=== PATIENT | female | born 1995 | race Caucasian/White ===

== ENCOUNTER 2017-01-26 18:59 | Emergency (ER) | payer OTHER ==
--- NOTE | 2017-01-26 19:26 | ED Physician Documentation ---
PD HPI FEMALE - Stated complaint Stated Complaint: FEMALE - Chief complaint Chief Complaint: General - History obtained from History obtained from: Patient - History of Present Illness Timing - onset: How many weeks ago (she has had about a week of nausea, some feeling of breast tenderness and has had some intermittent left lower abd cramps. No vaginal bleeding nor discharge. She says feeling is similar to when she was with her first child. Has hormone implant in left upper arm the past 6 months and has irregular/occasional periods that are light.) Timing - duration: Weeks (1) Timing - details: Gradual onset, Still present, Waxing and waning Associated symptoms: No: Fever, Vaginal bleeding, Vaginal discharge, Genital sore/lesion, Dysuria, Urinary frequency Contributing factors: control (had implant in upper arm). 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 denies: Vomiting, Diarrhea : reports: Irregular menses (due to implant). denies: Dysuria, Frequency, Discharge Skin: denies: Rash, Lesions PD PAST MEDICAL HISTORY - Past Medical History GI: None A P MANAGER: None : None - Present Medications Home Medications: Ambulatory Orders Medication Instructions Recorded Confirmed Ibuprofen 400 mg PO TID #20 tablet 01/26/17 Ondansetron Odt [Zofran] 4 mg TL Q6H PRN #15 tablet 01/26/17 - Allergies Allergies/Adverse Reactions: Allergies Allergy/AdvReac Type Severity Reaction Status Date / Time No Known Drug Allergies Allergy Verified 01/26/17 19:10 PD ED PE NORMAL - Vitals Vital signs reviewed: Yes - General General: Alert and oriented X 3, No acute distress, Well developed/nourished - Abdomen Abdomen: Soft, Non tender - Female Female : Deferred - Rectal Rectal: Deferred - Back Back: No CVA TTP - Derm Derm: Normal color, Warm and dry Results - Vitals Vitals: Vital Signs - 24 hr 01/26/17 01/26/17 19:07 20:37 Temperature 36.3 C L 36.5 C Heart Rate 95 76 Respiratory 16 22 Rate Blood Pressure 156/89 H 134/71 H O2 Saturation 99 100 Oxygen O2 Source Room air - Labs Labs: Laboratory Tests 01/26/17 01/26/17 19:28 19:42 Serum HCG, Qual NEGATIVE Urine Color YELLOW Urine Clarity CLEAR Urine pH 6.5 Ur Specific [place] 1.010 Urine Protein NEGATIVE Urine Glucose (UA) NEGATIVE Urine Ketones NEGATIVE Urine Occult Blood NEGATIVE Urine Nitrite NEGATIVE Urine Bilirubin NEGATIVE Urine Urobilinogen 0.2 (NORMAL) Ur Leukocyte Esterase MODERATE H Urine RBC 0-5 Urine WBC 11-25 H Ur Squamous Epith Cells MOD Squamous H Urine Bacteria None Seen Ur Microscopic Review INDICATED Urine Culture Comments NOT INDICATED Urine HCG, Qual NEGATIVE PD MEDICAL DECISION MAKING - ED course Complexity details: considered differential (not . Has had some breast tenderness and nausea that made her think she is . Has had some left lower cramps at times. Consider ovarian cyst. Not having pain right now, so I did not see need for U/S at this time. ), d/w patient Departure - Departure Disposition: 01 Home, Self Care Clinical Impression: Nausea Condition: Stable Record reviewed to determine appropriate education?: Yes Follow-Up: [facility] [Provider Group] Prescriptions: Ibuprofen 400 mg PO TID #20 tablet Ondansetron Odt [Zofran] 4 mg TL Q6H PRN #15 tablet PRN Reason: Nausea / Vomiting Comments: Drink lots of fluids. Your urine and blood tests are negative. Tylenol or Ibuprofen as needed for pains/cramps. Zofran if needed for nausea. Follow up GYNecology or your PCP regarding getting the Implant out, if you wish it out. At least one of your blood pressure readings in the ER today was elevated above the normal level. If you have diagnosed high blood pressure in the past, please be sure you are taking your BP medications and eating low salt diet. If you do not have know high BP, then being high today does not mean it is a mcc issue. It might be reactively high to the situation that has you here. You should follow up with your primary care to have the blood pressure checked again in the next few days/week or so to see if it is persistently high. If so, then you may need medication or changes in diet/lifestyle to treat it. Discharge Date/Time: 01/26/17 20:41
[2017-01-26 19:34] LABS: BILIRUBIN,URINE NEGATIVE (NEGATIVE); PH,URINE 6.5 PH (5.0-7.5)
[2017-01-26 19:38] LABS: HCG UR QUAL NEGATIVE; UA w/ MICROSCOPIC CHARGE YES
[2017-01-26 19:46] LABS: UR CULTURE IF IND NOT INDICATED
[2017-01-26] MEDS ORDERED: ONDANSETRON ODT 4 MG TABLET TL STA (20:28)
[2017-01-26] MEDS ORDERED: IBUPROFEN 600 MG TABLET PO STA (20:29)
[2017-01-26] MEDS ORDERED: ONDANSETRON ODT 4 MG TABLET ONE (20:31)
[2017-01-26] MEDS ORDERED: IBUPROFEN 600 MG TABLET PO ONE (20:31)
[2017-01-26 20:38] VITALS: BP 134/71
== END 2017-01-26 20:41 | disposition home or self-care (01) ==
LOC: ED 18:59
DX: R11.0 Nausea (principal); R10.32 Left lower quadrant pain; N64.89 Other specified disorders of breast; R03.0 Elevated blood-pressure reading, without diagnosis of hypertension
CPT/HCPCS: 36415; 81001; 81025; 84703; 99283; A9270; Q0162; 81003; 87086

== ENCOUNTER 2017-08-05 00:10 | Emergency (ER) | payer OTHER ==
[2017-08-05 00:38] LABS: BILIRUBIN,URINE NEGATIVE (NEGATIVE); PH,URINE 6.5 PH (5.0-7.5)
[2017-08-05 00:42] LABS: HCG UR QUAL NEGATIVE; UA CHARGE (STRIP ONLY) YES; UR CULTURE IF IND NOT INDICATED
--- NOTE | 2017-08-05 00:53 | ED Physician Documentation ---
History of Present Illness - Stated complaint Stated Complaint: ABDOMINAL PAIN - Chief complaint Chief Complaint: Abd Pain - History obtained from History obtained from: Patient (21 y/o female here because she took a home test and she states that it was "faintly positive" and she waneted a blood test. She reports no urinary sx, no vaginal bleeding. states that she has lower abdominal tendernss.) Review of Systems Constitutional: denies: Fever, Chills GI: reports: Abdominal Pain. denies: Nausea, Vomiting, Constipation, Diarrhea : denies: Dysuria, Frequency, Hematuria, Discharge, LMP, Vaginal bleeding Skin: denies: Rash, Lesions Musculoskeletal: denies: Neck pain, Back pain Neurologic: denies: Syncope PD PAST MEDICAL HISTORY - Past Medical History GI: None COOK SPECIALTY: None : None - Past Surgical History Past Surgical History: No - Present Medications Home Medications: Ambulatory Orders Medication Instructions Recorded Confirmed No Known Home Medications [No 08/05/17 08/05/17 Known Home Medications] - Allergies Allergies/Adverse Reactions: Allergies Allergy/AdvReac Type Severity Reaction Status Date / Time No Known Drug Allergies Allergy Verified 08/05/17 00:22 - Social History Does the pt smoke?: No Smoking Status: Never smoker Does the pt drink ETOH?: No Does the pt have substance abuse?: No - Immunizations Immunizations are current?: Yes - POLST Patient has POLST: No PD ED PE NORMAL - Vitals Vital signs reviewed: Yes - General General: Alert and oriented X 3, No acute distress, Well developed/nourished - Derm Derm: Normal color, No rash - Extremities Extremities: No deformity, No edema - Neuro Neuro: Alert and oriented X 3, Normal speech Eye Opening: Spontaneous Motor: Obeys Commands Verbal: Oriented GCS Score: 15 - Psych Psych: Normal mood, Normal affect Results - Vitals Vitals: Vital Signs - 24 hr 08/05/17 00:17 Temperature 37 C Heart Rate 105 H Respiratory 18 Rate Blood Pressure 135/93 H O2 Saturation 98 Oxygen O2 Source Room air - Labs Labs: Laboratory Tests 08/05/17 08/05/17 00:30 00:30 Urine Color YELLOW Urine Clarity CLEAR Urine pH 6.5 Ur Specific [place] 1.020 1.020 Urine Protein NEGATIVE Urine Glucose (UA) NEGATIVE Urine Ketones NEGATIVE Urine Occult Blood NEGATIVE Urine Nitrite NEGATIVE Urine Bilirubin NEGATIVE Urine Urobilinogen 0.2 (NORMAL) Ur Leukocyte Esterase NEGATIVE Ur Microscopic Review NOT INDICATED Urine Culture Comments NOT INDICATED Urine HCG, Qual NEGATIVE PD MEDICAL DECISION MAKING - ED course Complexity details: reviewed results, considered differential, d/w patient ED course: pt here wanting "blood" test. informed her about the urine test and the blood tests. our urine HCG was neg here. informed her that she should wait 48 hours and if she was still concerned about she should take another home test. she had a benign ABD. she expressed understanding. Departure - Departure Disposition: 01 Home, Self Care Clinical Impression: Abdominal pain Condition: Good Instructions: ED Abdominal Pain Unkn Cause Follow-Up: [facility] SOLOR[facility] [Primary Care Provider] - Comments: Wait 48 hours and if you are still concerned about you can take another home urine test. If your abdominal pain worsens or you get new symptoms return to the ER.
[2017-08-05 01:04] VITALS: BP 112/78
== END 2017-08-05 01:02 | disposition home or self-care (01) ==
LOC: ED 00:10
DX: R10.9 Unspecified abdominal pain (principal)
CPT/HCPCS: 81001; 81003; 81025; 87086; 99281; 99283

== ENCOUNTER 2017-08-19 00:18 | Emergency (ER) | payer OTHER ==
[2017-08-19 00:49] LABS: BILIRUBIN,URINE NEGATIVE (NEGATIVE); GLUCOSE, URINE (UA) NEGATIVE (NEGATIVE); KETONES,URINE (UA) NEGATIVE (NEGATIVE); LEUKOCYTE ESTERASE, URINE NEGATIVE (NEGATIVE); NITRITE,URINE NEGATIVE (NEGATIVE); OCCULT BLOOD,URINE SMALL (NEGATIVE); PROTEIN,URINE NEGATIVE (NEGATIVE); UROBILINOGEN,URINE 0.2 (NORMAL) E.U./dL (NORMAL)
[2017-08-19 00:53] LABS: CLARITY,URINE CLEAR (CLEAR); HCG UR QUAL POSITIVE
[2017-08-19 01:12] LABS: BACTERIA,URINE None Seen /HPF (None Seen); RBC,URINE 0-5 /HPF (0-5); SQUAMOUS EPITHELIAL CELL,UR RARE Squamous (<= Few)
[2017-08-19 01:17] LABS: BASOPHILS # (AUTO) 0.1 10^3/uL (0.0-0.1); BASOPHILS % (AUTO) 0.7 %; EOSINOPHILS # (AUTO) 0.2 10^3/uL (0.0-0.7); EOSINOPHILS % (AUTO) 2.3 %; HGB - HEMOGLOBIN 14.2 g/dL (12.0-16.0); LYMPHOCYTES # (AUTO) 2.2 10^3/uL (1.5-3.5); LYMPHOCYTES % (AUTO) 27.8 %; MEAN CORPUSCULAR HEMOGLOBIN 31.3 pg (27.0-31.0); MEAN CORPUSCULAR HGB CONC 35.1 g/dL (32.0-36.0); MEAN PLATELET VOLUME 7.4 fL (7.9-10.8); MONOCYTES # (AUTO) 0.5 10^3/uL (0.0-1.0); MONOCYTES % (AUTO) 6.6 %; NEUTROPHILS # (AUTO) 4.9 10^3/uL (1.5-6.6); NEUTROPHILS % (AUTO) 62.6 %; PLT - PLATELET COUNT 264 10^3/uL (130-450); RED BLOOD COUNT 4.55 10^6/uL (4.20-5.40); RED CELL DISTRIBUTION WIDTH 13.2 % (12.0-15.0); WHITE BLOOD COUNT 7.9 x10^3/uL (4.8-10.8)
[2017-08-19 01:35] LABS: ALBUMIN/GLOBULIN RATIO 1.3 (1.0-2.2); BILIRUBIN,TOTAL 0.2 mg/dL (0.2-1.0); CALCIUM 9.3 mg/dL (8.5-10.3); CREATININE 0.7 mg/dL (0.4-1.0); TOTAL PROTEIN 7.1 g/dL (6.7-8.2)
--- NOTE | 2017-08-19 01:54 | ED Physician Documentation ---
PD HPI FEMALE - Stated complaint Stated Complaint: BLEEDING,8W - Chief complaint Chief Complaint: General - History obtained from History obtained from: Patient - History of Present Illness Timing - onset: Today Timing - details: Gradual onset, Still present Associated symptoms: Vaginal bleeding. 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 patient was seen here almost two weeks ago and beta hcg was negative. patient states that she did have a beta performed last week and it was around 200. patient states tonight she had a little spotting so she came to the emergency department for evaluation. Review of Systems Constitutional: denies: Fever, Chills Eyes: reports: Reviewed and negative Ears: reports: Reviewed and negative Nose: reports: Reviewed and negative Throat: reports: Reviewed and negative Cardiac: reports: Reviewed and negative GI: denies: Abdominal Pain, Nausea, Vomiting : reports: Vaginal bleeding Skin: denies: Rash, Lesions Neurologic: denies: Generalized weakness, Near syncope, Syncope Immunocompromised: denies: Immunocompromised PD PAST MEDICAL HISTORY - Past Medical History GI: None BILLET STRAIGHTENER: None : None - Past Surgical History Past Surgical History: No - Present Medications Home Medications: Ambulatory Orders Medication Instructions Recorded Confirmed Cephalexin [Keflex] 250 mg PO QID 08/19/17 08/19/17 Pnv95/Ferrous Fumarate/FA 1 tab PO DAILY 08/19/17 08/19/17 [ Formula Tablet] - Allergies Allergies/Adverse Reactions: Allergies Allergy/AdvReac Type Severity Reaction Status Date / Time No Known Drug Allergies Allergy Verified 08/19/17 00:32 - Social History Does the pt smoke?: No Smoking Status: Never smoker Does the pt drink ETOH?: No Does the pt have substance abuse?: No - Immunizations Immunizations are current?: Yes - POLST Patient has POLST: No PD ED PE NORMAL - Vitals Vital signs reviewed: Yes - General General: Alert and oriented X 3, No acute distress - HEENT HEENT: Atraumatic, PERRL, Pharynx benign - Neck Neck: Supple, no meningeal sign, No JVD - Cardiac Cardiac: RRR, No murmur - Respiratory Respiratory: No respiratory distress - Abdomen Abdomen: Soft, Non tender, Non distended - Female Female : Deferred - Derm Derm: Normal color, Warm and dry - Extremities Extremities: No deformity, Normal ROM s pain, No calf tenderness / cord - Neuro Neuro: Alert and oriented X 3, No motor deficit, No sensory deficit, Normal speech Eye Opening: Spontaneous Motor: Obeys Commands Verbal: Oriented GCS Score: 15 - Psych Psych: Normal mood PD ED PE EXPANDED - General General: Alert Results - Vitals Vitals: Vital Signs - 24 hr 08/19/17 00:30 Temperature 36.6 C Heart Rate 105 H Respiratory 18 Rate Blood Pressure 133/74 H O2 Saturation 99 Oxygen O2 Source Room air - Labs Labs: Laboratory Tests 08/19/17 08/19/17 08/19/17 00:39 01:03 01:03 WBC 7.9 RBC 4.55 Hgb 14.2 Hct 40.5 MCV 89.0 MCH 31.3 H MCHC 35.1 RDW 13.2 Plt Count 264 MPV 7.4 L Neut # 4.9 Lymph # 2.2 [place] # 0.5 Eos # 0.2 Baso # 0.1 Absolute Nucleated RBC 0.00 Nucleated RBC % 0.0 Sodium 137 Potassium 3.7 Chloride 103 Carbon Dioxide 23 Anion Gap 11.0 BUN 9 Creatinine 0.7 Estimated GFR (MDRD) 107 Glucose 103 H Calcium 9.3 Total Bilirubin 0.2 AST 23 ALT 27 Alkaline Phosphatase 57 Total Protein 7.1 Albumin 4.0 Globulin 3.1 Albumin/Globulin Ratio 1.3 Lipase 30 HCG, Quant Urine Color YELLOW Urine Clarity CLEAR Urine pH 6.0 Ur Specific [place] 1.025 Urine Protein NEGATIVE Urine Glucose (UA) NEGATIVE Urine Ketones NEGATIVE Urine Occult Blood SMALL H Urine Nitrite NEGATIVE Urine Bilirubin NEGATIVE Urine Urobilinogen 0.2 (NORMAL) Ur Leukocyte Esterase NEGATIVE Urine RBC 0-5 Urine WBC 0-3 Ur Squamous Epith Cells RARE Squamous Urine Bacteria None Seen Ur Microscopic Review INDICATED Urine Culture Comments NOT INDICATED Urine HCG, Qual POSITIVE 08/19/17 01:03 WBC RBC Hgb Hct MCV MCH MCHC RDW Plt Count MPV Neut # Lymph # [place] # Eos # Baso # Absolute Nucleated RBC Nucleated RBC % Sodium Potassium Chloride Carbon Dioxide Anion Gap BUN Creatinine Estimated GFR (MDRD) Glucose Calcium Total Bilirubin AST ALT Alkaline Phosphatase Total Protein Albumin Globulin Albumin/Globulin Ratio Lipase HCG, Quant 539.61 Urine Color Urine Clarity Urine pH Ur Specific [place] Urine Protein Urine Glucose (UA) Urine Ketones Urine Occult Blood Urine Nitrite Urine Bilirubin Urine Urobilinogen Ur Leukocyte Esterase Urine RBC Urine WBC Ur Squamous Epith Cells Urine Bacteria Ur Microscopic Review Urine Culture Comments Urine HCG, Qual PD MEDICAL DECISION MAKING - ED course Complexity details: reviewed old records, reviewed results, re-evaluated patient , considered differential, d/w patient ED course: Patient was seen and examined at bedside. Patient was well appearing and in no distress. urine was positive. labs were drawn. When patient's labs came back she was found to have a beta of 500. it is still too early for sonographic evidence of preganancy. patient was made aware of the findings and the importance of close follow up for repeat beta hcg Departure - Departure Disposition: 01 Home, Self Care Clinical Impression: Hemorrhage, , early Condition: Good Instructions: Care Follow-Up: [facility] [Primary Care Provider] - Comments: Your Beta level today was 540. It seems like it is going up appropriately but it is still too early to see anything on ultrasound. You will need to follow up with your ob in the next 72 hours for repeat beta. Some bleeding in early is normal but you should return to the emergency department for sever pain, bleeding, new, worsening or uncontrollable symptoms.
[2017-08-19 02:39] VITALS: BP 122/76
== END 2017-08-19 02:38 | disposition home or self-care (01) ==
LOC: ED 00:18
DX: O20.9 Hemorrhage in early pregnancy, unspecified (principal); Z3A.01 Less than 8 weeks gestation of pregnancy
CPT/HCPCS: 36415; 80053; 81001; 81003; 81025; 83690; 84702; 85025; 86900; 86901; 87086; 99283

== ENCOUNTER 2017-08-28 13:06 | Day surgery (SDC) | payer OTHER ==
[2017-08-28] MEDS ORDERED: SODIUM CHLORIDE 0.9% 1,000 ML IV ONE (13:31)
--- NOTE | 2017-08-28 13:44 | ED Physician Documentation ---
PD HPI FEMALE - Stated complaint Stated Complaint: ABD/BACK PX - Chief complaint Chief Complaint: Abd Pain - History obtained from History obtained from: Patient, Family - History of Present Illness Timing - onset: How many weeks ago (1) Timing - duration: Weeks (1) Timing - details: Gradual onset, Still present, Waxing and waning Associated symptoms: Back pain, Pelvic pain, Vaginal bleeding Contributing factors: Similar symptoms before: Has not had sx before Recently seen: Clinic - Additional information Additional information: 22-year-old female with pelvic cramping and vaginal bleeding for the past 3 weeks was diagnosed with early at the end of July she has had hCGs that have not progressed well and yesterday and was diagnosed with ectopic . She had ultrasound done yesterday. Her doctor is at [facility] and she was planning on doing methotrexate. Last night she had an increase in her pain and bleeding and is here today for evaluation. Review of Systems Constitutional: denies: Fever, Chills, Myalgias Eyes: denies: Decreased vision Ears: denies: Ear pain Nose: denies: Congestion Throat: denies: Oral lesions / sores, Sore throat Cardiac: denies: Chest pain / pressure Respiratory: denies: Dyspnea, Cough GI: reports: Abdominal Pain, Nausea : denies: Dysuria, Frequency Skin: denies: Rash Musculoskeletal: reports: Back pain. denies: Neck pain Neurologic: denies: Generalized weakness, Focal weakness, Numbness PD PAST MEDICAL HISTORY - Past Medical History GI: None BUSINESS SUPPORT ASSISTANT: None : None - Past Surgical History Past Surgical History: No - Present Medications Home Medications: Ambulatory Orders Medication Instructions Recorded Confirmed Pnv95/Ferrous Fumarate/FA 1 tab PO DAILY 08/19/17 08/28/17 [ Formula Tablet] - Allergies Allergies/Adverse Reactions: Allergies Allergy/AdvReac Type Severity Reaction Status Date / Time No Known Drug Allergies Allergy Verified 08/28/17 13:15 - Social History Does the pt smoke?: No Smoking Status: Never smoker Does the pt drink ETOH?: No Does the pt have substance abuse?: No - Immunizations Immunizations are current?: Yes - POLST Patient has POLST: No PD ED PE NORMAL - Vitals Vital signs reviewed: Yes (tachy and hypertensive ) - General General: Alert and oriented X 3, No acute distress, Well developed/nourished - HEENT HEENT: Atraumatic, PERRL, EOMI - Neck Neck: Supple, no meningeal sign - Cardiac Cardiac: No murmur, Other (tachy to 110) - Respiratory Respiratory: No respiratory distress - Abdomen Abdomen: Soft, Other (mild suprapubic tenderness) - Back Back: No CVA TTP, No spinal TTP - Derm Derm: Normal color, Warm and dry, No rash - Extremities Extremities: No deformity, No edema - Neuro Neuro: No motor deficit, No sensory deficit Eye Opening: Spontaneous Motor: Obeys Commands Verbal: Oriented GCS Score: 15 - Psych Psych: Normal mood, Normal affect Results - Vitals Vitals: Vital Signs - 24 hr 08/28/17 13:10 Temperature 36.5 C Heart Rate 116 H Respiratory 20 Rate Blood Pressure 148/80 H O2 Saturation 100 Oxygen O2 Source Room air - Labs Labs: Laboratory Tests 08/28/17 08/28/17 13:30 13:37 WBC 7.1 RBC 4.38 Hgb 13.6 Hct 39.4 MCV 90.1 MCH 31.1 H MCHC 34.5 RDW 12.8 Plt Count 274 MPV 7.6 L Neut # 5.2 Lymph # 1.4 L [place] # 0.4 Eos # 0.1 Baso # 0.0 Absolute Nucleated RBC 0.00 Nucleated RBC % 0.0 Sodium 135 Potassium 3.2 L Chloride 103 Carbon Dioxide 23 Anion Gap 9.0 BUN 12 Creatinine 0.7 Estimated GFR (MDRD) 107 Glucose 110 H Calcium 8.6 Total Bilirubin 0.6 AST 21 ALT 24 Alkaline Phosphatase 69 Total Protein 7.9 Albumin 4.1 Globulin 3.8 Albumin/Globulin Ratio 1.1 Lipase 16 L - Rads (name of study) Ultrasound OB first trimester Radiology: Prelim report reviewed (Impression: Positive hemorrhage in the cul-de -sac no intrauterine ectopic not confidently visualized.), Discussed with rads, EMP read indepedently, See rad report Procedures - Bedside sono Bedside sono by EMP: With use of bedside ultrasound there does appear to be some trace free fluid in the pelvis and in Morison's pouch. There is a trace around the spleen normal renal reflection as well. PD MEDICAL DECISION MAKING - ED course Complexity details: reviewed old records, reviewed results, re-evaluated patient , considered differential, d/w patient, d/w family ED course: 22-year-old female with early has been diagnosed with ectopic yesterday. She was preparing to go to the [facility] clinic to get methotrexate. Last night she had a spike in her pain and increased vaginal bleeding. She does feel lightheaded and dizzy as well. When she called to come in to get the methotrexate she was told to come to the emergency department for evaluation. She has been seen by her BUSINESS SUPPORT ASSISTANT doctor with has been following serial hCGs and she had ultrasound done yesterday. Dr. Guy the patient's ATTRACTION ATTENDANT doctor at [facility] is consulted in the case by telephone and recommends definitive care here as she does not have operating privileges in our hospital. She indicates that the patient's quant had been raising slowly, she had persistent pain and then past a large clot. The patient felt that she might not need to come in for ultrasound as she felt she had a miscarriage. She did get the ultrasound yesterday showing an ectopic on the right. Today we are unable to see the fetus on ultrasound, there is blood in the culdesac and is consulted in the case and will come to the Ed for evaluation. Departure - Departure Disposition: ED Transfer to [facility] Clinical Impression: Ruptured ectopic Condition: Serious
[2017-08-28 13:56] LABS: BASOPHILS % (AUTO) 0.5 %; EOSINOPHILS # (AUTO) 0.1 10^3/uL (0.0-0.7); HGB - HEMOGLOBIN 13.6 g/dL (12.0-16.0); LYMPHOCYTES # (AUTO) 1.4 10^3/uL (1.5-3.5); LYMPHOCYTES % (AUTO) 20.1 %; MEAN CORPUSCULAR HEMOGLOBIN 31.1 pg (27.0-31.0); MEAN CORPUSCULAR HGB CONC 34.5 g/dL (32.0-36.0); MEAN CORPUSCULAR VOLUME 90.1 fL (81.0-99.0); MEAN PLATELET VOLUME 7.6 fL (7.9-10.8); MONOCYTES # (AUTO) 0.4 10^3/uL (0.0-1.0); MONOCYTES % (AUTO) 5.4 %; NEUTROPHILS # (AUTO) 5.2 10^3/uL (1.5-6.6); PLT - PLATELET COUNT 274 10^3/uL (130-450); RED BLOOD COUNT 4.38 10^6/uL (4.20-5.40); RED CELL DISTRIBUTION WIDTH 12.8 % (12.0-15.0); WHITE BLOOD COUNT 7.1 x10^3/uL (4.8-10.8)
[2017-08-28 14:05] LABS: ALBUMIN 4.1 g/dL (3.2-5.5); ALBUMIN/GLOBULIN RATIO 1.1 (1.0-2.2); BILIRUBIN,TOTAL 0.6 mg/dL (0.2-1.0); CALCIUM 8.6 mg/dL (8.5-10.3); CREATININE 0.7 mg/dL (0.4-1.0); TOTAL PROTEIN 7.9 g/dL (6.7-8.2)
[2017-08-28 15:58] LABS: BILIRUBIN,URINE NEGATIVE (NEGATIVE); GLUCOSE, URINE (UA) NEGATIVE (NEGATIVE); KETONES,URINE (UA) NEGATIVE (NEGATIVE); LEUKOCYTE ESTERASE, URINE NEGATIVE (NEGATIVE); NITRITE,URINE NEGATIVE (NEGATIVE); OCCULT BLOOD,URINE LARGE (NEGATIVE); PROTEIN,URINE NEGATIVE (NEGATIVE); UROBILINOGEN,URINE 0.2 (NORMAL) E.U./dL (NORMAL)
[2017-08-28 16:02] LABS: CLARITY,URINE CLEAR (CLEAR)
[2017-08-28 16:06] LABS: BACTERIA,URINE Rare /HPF (None Seen); RBC,URINE 0-5 /HPF (0-5); SQUAMOUS EPITHELIAL CELL,UR FEW Squamous (<= Few)
[2017-08-28] MEDS ORDERED: SODIUM CHLORIDE 0.9% 100 ML IV ONE (16:41)
[2017-08-28] MEDS ORDERED: LACTATED RINGERS 1,000 ML IV ONE ×2 (16:45→17:24)
--- NOTE | 2017-08-28 16:45 | PREOP HISTORY & PHYSICAL ---
DATE OF SERVICE: 08/28/2017 Physician: Ruben Masterson MD PATIENT IDENTIFICATION: The patient is a 22-year-old G2, P1 female, with last menstrual period was 20 June 2017. CHIEF COMPLAINT: Right lower quadrant pain. HISTORY OF PRESENT ILLNESS: The patient states that she has been having right lower quadrant pain off and on for the last week. She states that she had it yesterday and then it again recurred today. She states the pain ranges anywhere from a 7-9.5/10. She has had an ultrasound done yesterday which showed evidence of a 1.5 cm adnexal mass, suspicious of that being an ectopic . She was being scheduled to have methotrexate administered. She presents here to our emergency room with increasing pelvic pain. She has an ultrasound that shows now fluid in the pelvis. She also is noted to have a little bit of tachycardia at 116. She has received a liter of fluid at this time. She does have a history of having chlamydia back in 2014. She did have an episode of some bleeding with passage of clot yesterday. PAST MEDICAL HISTORY: The patient denies any hypertensive, diabetic or cardiac disease. PAST SURGICAL HISTORY: Positive for wisdom teeth as well as pins being placed in her left arm. ALLERGIES: NONE KNOWN. CURRENT MEDICATIONS: vitamins. HABITS: The patient smokes 10 cigarettes per day. Denies use of alcohol, street addictive drugs or tetrahydrocannabinol. SOCIAL HISTORY: The patient is and lives with her spouse and child. 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 FAMILY HISTORY: Positive for mother with cervical cancer. She denies any family history for ovarian, breast cancer. REVIEW OF SYSTEMS: Positive for wearing glasses. She denies any difficulty with hearing, sense of smell or taste, heart, lungs, stomach, bowel or bladder. PHYSICAL EXAMINATION: VITAL SIGNS: On admission, temperature was 36.5, pulse 116, blood pressure 148/80, respirations 20, 100% on room air. HEENT: Pupils equal, round. Extraocular muscles are intact. Thyroid is not palpably enlarged. HEART: Regular rate and rhythm without murmurs. LUNGS: Lung camejo are clear without rales or wheezes. BACK: No spinal or CVA tenderness noted. ABDOMEN: Shows stria previous . There is no tenderness in the upper abdomen. There is tender, however, in the lower pelvis, particularly in the midline and to the right hand side. There is rebound as well as tenderness to percussion. PELVIC: Pelvic examination duplicates pain in the cul-de-sac as well as the left adnexa. The cervix and uterus reside high in the pelvic cavity. IMPRESSION: 1. Probable hemoperitoneum, most likely from an ectopic from the right hand side. The possibilities of an incomplete AB are present, but not probable. PLAN: We will perform diagnostic laparoscopy with possible right salpingectomy versus salpingostomy. We will also perform D and C, if indicated. Risks and benefits have been explained to the patient including those, but not limited to bleeding, infection, injury to pelvic organs, which include uterus, tubes, ovaries, bowel, bladder and ureters. She is aware of the potential for DVT with PE as well as postop adhesion which could cause pain, bowel obstruction and infertility. TD: 08/28/2017 17:44
[2017-08-28] MEDS ORDERED: ceFAZolin 2 GM/50 ML 2 GM/50 ML BAG IV ONE (16:53)
[2017-08-28] MEDS ORDERED: BUPIVACAINE 0.25%-EPI 1:200000 PF 30 ML VIAL SUBQ ONE ×2 (17:06)
[2017-08-28] MEDS ORDERED: DEXAMETHASONE 4 MG/ML VIAL IVP ONE (17:15)
[2017-08-28] MEDS ORDERED: GLYCOPYRROLATE 1 MG/5 ML VIAL IVP ONE (17:15)
[2017-08-28] MEDS ORDERED: fentaNYL 100 MCG/2 ML VIAL IVP ONE (17:15)
[2017-08-28] MEDS ORDERED: NEOSTIGMINE 1 MG/1 ML 10 ML MDV IVP ONE (17:15)
[2017-08-28] MEDS ORDERED: PROPOFOL 200 MG/20 ML VIAL IVP ONE (17:15)
[2017-08-28] MEDS ORDERED: SUCCINYLCHOLINE 200 MG/10 ML VIAL IVP ONE (17:15)
[2017-08-28] MEDS ORDERED: ONDANSETRON 4 MG/2 ML VIAL IVP ONE (17:15)
[2017-08-28] MEDS ORDERED: MIDAZOLAM 2 MG/2 ML VIAL IVP ONE (17:15)
[2017-08-28] MEDS ORDERED: ROCURONIUM 50 MG/5 ML VIAL IVP ONE (17:15)
[2017-08-28] MEDS ORDERED: KETOROLAC 30 MG/ML VIAL IVP ONE (17:15)
[2017-08-28] MEDS ORDERED: ACETAMINOPHEN 1,000 MG/100 ML 100 ML IV ONE (18:17)
[2017-08-28] MEDS ORDERED: MEPERIDINE 50 MG/ML SYRINGE ONE (18:22)
[2017-08-28] MEDS ORDERED: oxyCODONE 5 MG TABLET ONE (18:56)
--- NOTE | 2017-08-28 19:03 | Ultrasound Report ---
DATE OF SERVICE: 08/28/2017 FIRST TRIMESTER OB ULTRASOUND WITH TRANSVAGINAL: 08/28/2017 CLINICAL INDICATION: Ectopic diagnosed yesterday at an outside facility, increasing pain, question rupture. TECHNIQUE: Transabdominal pelvic ultrasound performed for global evaluation. Transvaginal pelvic ultrasound performed for detailed evaluation. Real-time scanning performed and static images obtained. The uterus is anteverted. There is no evidence of an intrauterine gestation. No definite extrauterine gestation is identified. The left ovary is not identified. Complex fluid is seen in the cul-de-sac, compatible with hemorrhage. The right ovary appears unremarkable, measuring 2.5 x 2.1 x 2.0 cm. IMPRESSION: 1. No evidence of an intrauterine gestation. 2. Ectopic not definitively visualized. Likely hemorrhage in the cul-de-sac. CRITICAL RESULT: Results called to Dr. Norton in the emergency department on 08/28/2017 at 1445 hours. TD: 08/28/2017 20:02
--- NOTE | 2017-08-28 19:17 | OPERATIVE REPORT ---
DATE OF SERVICE: 08/28/2017 Physician: Ruben Masterson MD PREOPERATIVE DIAGNOSIS: Suspected right ectopic . POSTOPERATIVE DIAGNOSIS: Right ectopic . Hemoperitoneum PROCEDURE: Diagnostic laparoscopy with right salpingectomy. SURGEON: Ruben Masterson MD ANESTHESIA: Flaquita Hernandez CRNA FINDINGS: Hemoperitoneum of roughly 300 mL, right ectopic . COMPLICATIONS: None. ESTIMATED BLOOD LOSS: Less than 5 mL. SPECIMENS TO PATHOLOGY: Right tube. FINDINGS: Upon entering the abdominal cavity, there was evidence of blood over the entire peritoneal cavity. This was concentrated most in the pelvis, in the cul-de-sac per se. There was also clot noted as well as a smear of blood in the anterior uterus. Upon inspection, the right fallopian tube showed evidence of an ectopic , roughly 3-5 cm in length and roughly 2.5 cm in diameter. There is evidence of blood coming from the fimbriated end. The appendix appeared to be normal. Left tube appeared normal. PROCEDURE: Following adequate endotracheal anesthesia, the patient was placed in the dorsal lithotomy position in [facility]. At this point, she was prepped and draped in the usual fashion. A timeout was performed in which the patient was identified and consented to the procedure. A speculum was placed in the vagina. The cervix visualized, grasped with a single-tooth tenaculum. The uterus was sounded to 7 cm and then dilated to 8 mm. A HUMI catheter was placed without difficulty and the balloon insufflated. 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 Following this, local anesthesia with 0.25% Marcaine was injected in the subumbilical area. A #15 blade was used to incise. Following this, a 5 mm trocar and sheath were inserted without difficulty. An immediate hemoperitoneum was noted upon entry. At this point, the abdominal cavity was insufflated with carbon dioxide. Two additional trocars and ports were placed, both in the left and right side, following local anesthesia with 0.25% Marcaine with epinephrine. Both trocars were visualized on the way in. At this point, the cul-de-sac was noted to have a large clot as well as blood. There was evidence of a smear of blood over the entire pelvic cavity as well as some of the bowel. The cul-de-sac was irrigated clear. The right fallopian tube was grasped at its fimbriated end and then a LigaSure was used to cauterize and transect the mesosalpinx as close to the tube as possible. This was carried all the way to the cornua and the cornua was then cauterized and transected. This was then brought through the right lower quadrant incision following spreading the incision open with a Peon and then grasping the tube with the same Peon. The remainder of the pelvic cavity was inspected. The appendix appeared to be normal. The pelvis was then irrigated with roughly 3 liters of normal saline and then removed. There was no evidence of any bleeding from the mesosalpinx. At this time, the procedure was terminated. Both ports were removed under direct visualization. There was no evidence of any bleeding out of either site. The CO2 was allowed to release from the subumbilical port and then this port was also removed. All 3 incisions was closed utilizing 4-0 Monocryl. Then, Dermabond was placed. The HUMI catheter was then removed from the uterus. The patient tolerated the procedure well and was taken to recovery in stable condition. Sponge and needle counts were correct. TD: 08/28/2017 20:15 MAY
[2017-08-28 19:39] VITALS: BP 131/68
== END 2017-08-28 15:58 | disposition home or self-care (01) ==
LOC: ED 13:06 → SDS 15:57
PROVIDERS: ATTEND Obstetrics & Gynecology
PROC: 0UT54ZZ Resection of Right Fallopian Tube, Percutaneous Endoscopic Approach (ICD-10-PCS; 2017-08-28)
PROC: 10T24ZZ Resection of Products of Conception, Ectopic, Percutaneous Endoscopic Approach (ICD-10-PCS; principal; 2017-08-28 16:23)
DX: O00.101 Right tubal pregnancy without intrauterine pregnancy (principal); F17.210 Nicotine dependence, cigarettes, uncomplicated
CPT/HCPCS: 36415; 59151; 76801; 76817; 80053; 81001; 83690; 85025; 86850; 86900; 86901; 96360; 99283; 99284; A9270; J0131; J0690; J7120; 81003; 87086

== ENCOUNTER 2017-11-12 00:41 | Emergency (ER) | payer OTHER, MEDICAID ==
[2017-11-12 00:59] LABS: BILIRUBIN,URINE NEGATIVE (NEGATIVE); GLUCOSE, URINE (UA) NEGATIVE (NEGATIVE); KETONES,URINE (UA) NEGATIVE (NEGATIVE); LEUKOCYTE ESTERASE, URINE NEGATIVE (NEGATIVE); NITRITE,URINE NEGATIVE (NEGATIVE); OCCULT BLOOD,URINE TRACE-INTA (NEGATIVE); PROTEIN,URINE NEGATIVE (NEGATIVE); UROBILINOGEN,URINE 4 E.U./dL (NORMAL)
[2017-11-12 01:01] LABS: CLARITY,URINE CLEAR (CLEAR); HCG UR QUAL NEGATIVE
[2017-11-12] MEDS ORDERED: SODIUM CHLORIDE 0.9% 1,000 ML IV ONE (01:02)
[2017-11-12 01:23] LABS: BASOPHILS % (AUTO) 6.5 %; EOSINOPHILS % (AUTO) 3.4 %; HGB - HEMOGLOBIN 14.2 g/dL (12.0-16.0); MEAN CORPUSCULAR HEMOGLOBIN 30.5 pg (27.0-31.0); MEAN CORPUSCULAR HGB CONC 34.5 g/dL (32.0-36.0); MEAN CORPUSCULAR VOLUME 88.4 fL (81.0-99.0); MEAN PLATELET VOLUME 7.7 fL (7.9-10.8); NEUTROPHILS % (AUTO) 71.1 %; PLT - PLATELET COUNT 271 10^3/uL (130-450); RED BLOOD COUNT 4.67 10^6/uL (4.20-5.40); RED CELL DISTRIBUTION WIDTH 13.5 % (12.0-15.0); WHITE BLOOD COUNT 8.6 x10^3/uL (4.8-10.8)
[2017-11-12 01:28] LABS: ABNORMAL LYMPHS % (MANUAL) 0 %; BAND NEUTROPHILS % (MANUAL) 0 %
[2017-11-12 01:32] LABS: ALBUMIN 4.2 g/dL (3.2-5.5); ALBUMIN/GLOBULIN RATIO 1.2 (1.0-2.2); BILIRUBIN,TOTAL 0.3 mg/dL (0.2-1.0); CALCIUM 8.6 mg/dL (8.5-10.3); CREATININE 0.7 mg/dL (0.4-1.0); TOTAL PROTEIN 7.7 g/dL (6.7-8.2)
[2017-11-12 01:53] LABS: EOSINOPHILS # (MANUAL) 0.1 10^3/uL (0-0.7); LYMPHOCYTES # (MANUAL) 3.4 10^3/uL (1.5-3.5); LYMPHOCYTES % (MANUAL) 26 %; MONOCYTES # (MANUAL) 0.3 10^3/uL (0.0-1.0); NEUTROPHILS # (MANUAL) 4.8 10^3/uL (1.5-6.6); NEUTROPHILS % (MANUAL) 56 %
[2017-11-12 01:55] LABS: DIFFERENTIAL COMMENT MANUAL DIFFERENTIAL; PLATELET ESTIMATE, MANUAL NORMAL (130-450,000) (NORMAL); PLATELET MORPHOLOGY NORMAL APPEARANCE (NORMAL); RBC MORPHOLOGY (MULTIPLE) NORMAL APPEARANCE (NORMAL)
--- NOTE | 2017-11-12 02:00 | ED Physician Documentation ---
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 Patient had an ectopic about 10 weeks ago. Patient states that since that time her periods have been irregular. patient states that she took 4 home tests and they were positive. Patient denies any abdominal pain but reports that she has had minimal spotting. Review of Systems Constitutional: denies: Fever, Chills Eyes: reports: Reviewed and negative Ears: reports: Reviewed and negative Nose: reports: Reviewed and negative Throat: reports: Reviewed and negative Cardiac: reports: Reviewed and negative Respiratory: denies: Dyspnea, Cough GI: denies: Abdominal Pain, Nausea, Vomiting : reports: Vaginal bleeding. 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 : None - Past Surgical History Past Surgical History: Yes - Present Medications Home Medications: Ambulatory Orders Medication Instructions Recorded Confirmed Pnv95/Ferrous Fumarate/FA 1 tab PO DAILY 08/19/17 08/28/17 [ Formula Tablet] - Allergies Allergies/Adverse Reactions: Allergies Allergy/AdvReac Type Severity Reaction Status Date / Time No Known Drug Allergies Allergy Verified 08/28/17 13:15 - Social History Does the pt smoke?: No Smoking Status: Never smoker Does the pt drink ETOH?: No Does the pt have substance abuse?: No - Immunizations Immunizations are current?: Yes - POLST Patient has POLST: No PD ED PE NORMAL - Vitals Vital signs reviewed: Yes - General General: Alert and oriented X 3, No acute distress - HEENT HEENT: Atraumatic, Moist mucous membranes - Neck Neck: Supple, no meningeal sign - Respiratory Respiratory: No respiratory distress - Abdomen Abdomen: Soft, Non tender, Non distended - Derm Derm: Normal color - Extremities Extremities: No deformity - Neuro Neuro: Alert and oriented X 3 PD ED PE EXPANDED - Cardiac Cardiac: Tachy Results - Vitals Vitals: Vital Signs - 24 hr 11/12/17 11/12/17 00:45 01:18 Temperature 36.3 C L Heart Rate 125 H 121 H Respiratory 18 18 Rate Blood Pressure 160/93 H 136/116 H O2 Saturation 98 100 Oxygen O2 Source Room air - Labs Labs: Laboratory Tests 11/12/17 11/12/17 11/12/17 00:50 00:50 01:09 WBC 8.6 RBC 4.67 Hgb 14.2 Hct 41.2 MCV 88.4 MCH 30.5 MCHC 34.5 RDW 13.5 Plt Count 271 MPV 7.7 L Neut # Not Reportable Lymph # Not Reportable [place] # Not Reportable Eos # Not Reportable Baso # Not Reportable Absolute Nucleated RBC Not Reportable Total Counted 100 Band Neuts % (Manual) 0 Reactive Lymphs % (Man) 14 Abnorm Lymph % (Manual) 0 Nucleated RBC % Not Reportable Neutrophils # (Manual) 4.8 Lymphocytes # (Manual) 3.4 Monocytes # (Manual) 0.3 Eosinophils # (Manual) 0.1 Basophils # (Manual) 0.0 Differential Comment MANUAL DIFFERENTIAL Platelet Estimate NORMAL (130-450,000) Platelet Morphology NORMAL APPEARANCE RBC Morph Micro Appear NORMAL APPEARANCE Sodium Potassium Chloride Carbon Dioxide Anion Gap BUN Creatinine Estimated GFR (MDRD) Glucose Calcium Total Bilirubin AST ALT Alkaline Phosphatase Total Protein Albumin Globulin Albumin/Globulin Ratio Lipase HCG, Quant Urine Color YELLOW Urine Clarity CLEAR Urine pH 7.0 Ur Specific [place] 1.020 1.020 Urine Protein NEGATIVE Urine Glucose (UA) NEGATIVE Urine Ketones NEGATIVE Urine Occult Blood TRACE-INTA Urine Nitrite NEGATIVE Urine Bilirubin NEGATIVE Urine Urobilinogen 4 H Ur Leukocyte Esterase NEGATIVE Ur Microscopic Review NOT INDICATED Urine Culture Comments NOT INDICATED Urine HCG, Qual NEGATIVE 11/12/17 11/12/17 01:09 01:09 WBC RBC Hgb Hct MCV MCH MCHC RDW Plt Count MPV Neut # Lymph # [place] # Eos # Baso # Absolute Nucleated RBC Total Counted Band Neuts % (Manual) Reactive Lymphs % (Man) Abnorm Lymph % (Manual) Nucleated RBC % Neutrophils # (Manual) Lymphocytes # (Manual) Monocytes # (Manual) Eosinophils # (Manual) Basophils # (Manual) Differential Comment Platelet Estimate Platelet Morphology RBC Morph Micro Appear Sodium 138 Potassium 3.5 Chloride 103 Carbon Dioxide 25 Anion Gap 10.0 BUN 9 Creatinine 0.7 Estimated GFR (MDRD) 107 Glucose 100 Calcium 8.6 Total Bilirubin 0.3 AST 20 ALT 23 Alkaline Phosphatase 79 Total Protein 7.7 Albumin 4.2 Globulin 3.5 Albumin/Globulin Ratio 1.2 Lipase 25 HCG, Quant 8.55 Urine Color Urine Clarity Urine pH Ur Specific [place] Urine Protein Urine Glucose (UA) Urine Ketones Urine Occult Blood Urine Nitrite Urine Bilirubin Urine Urobilinogen Ur Leukocyte Esterase Ur Microscopic Review Urine Culture Comments Urine HCG, Qual PD MEDICAL DECISION MAKING - ED course Complexity details: reviewed old records, reviewed results, re-evaluated patient , considered differential, d/w patient ED course: Patient was seen and examined at bedside. IV access was gained and labs were drawn. Urine was collected. Patient's urine was negative but her serum hcg was slightly positive. Case was discussed with Dr. Masterson who recommended repeat beta in 48 hours. Patient's tachycardia improved with fluids (and patient smoked right before walking in to the ER). Patient and friend were given detailed discharge and follow up instructions. patient was stable for outpatient follow up. Departure - Departure Disposition: 01 Home, Self Care Clinical Impression: Hemorrhage, , early Condition: Stable Instructions: Bleeding Early Preg Follow-Up: Ruben Masterson MD [Provider Admit Priv/Credential] - Within 3 Days Comments: Your diagnostics today were inconclusive. Your beta hcg level was 8, which is consistent with a but is incredibly low. It is important that you follow up with your doctor, Dr. Masterson or return to the emergency department to recheck the hcg level in 48 to 72 hours. You should return sooner for syncope, severe pain, or severe bleeding.
[2017-11-12 02:12] VITALS: BP 122/82
== END 2017-11-12 02:20 | disposition home or self-care (01) ==
LOC: ED 00:41 → SUPCPDRO 00:41 → ED 02:20
DX: O20.9 Hemorrhage in early pregnancy, unspecified (principal); R00.0 Tachycardia, unspecified
CPT/HCPCS: 36415; 80053; 81001; 81003; 81025; 83690; 84702; 85025; 87086; 96360; 99283; 99284